=== PATIENT | female | born 1955 | race Caucasian/White ===

== ENCOUNTER → 2016-08-29 | Outpatient (CLI) | payer OTHER ==
[~2016-08-29] MED LIST: CELEXA 20MG20 MG/TA1 PO; FLEXERIL 1010 MG/TAB PO
== END ==
LOC: VAS 17:41
DX: R55 Syncope and collapse (principal)

== ENCOUNTER → 2018-06-20 | Outpatient (CLI) | payer OTHER ==
[2016-06-05 22:35] VITALS: BP 116/82
== END ==
LOC: RAD 11:22
DX: R31.21 Asymptomatic microscopic hematuria (principal); Z98.890 Other specified postprocedural states; Z98.1 Arthrodesis status; Z90.49 Acquired absence of other specified parts of digestive tract

== ENCOUNTER → 2021-09-22 | Outpatient (CLI) | payer OTHER ==
[~2021-09-22] MED LIST changes: +NORCO 325 MG-51 TA1 PO
== END ==
LOC: RAD 15:17
DX: M25.562 Pain in left knee (principal); M25.552 Pain in left hip; M25.462 Effusion, left knee

== ENCOUNTER → 2021-10-04 | Outpatient (CLI) | payer OTHER | LOC: RAD 10:58 | DX: M17.0 Bilateral primary osteoarthritis of knee (principal) ==

== ENCOUNTER → 2021-10-12 | Outpatient (CLI) | payer BC | LOC: RAD 15:00 | DX: S83.282A Other tear of lateral meniscus, current injury, left knee, initial encounter (principal); S80.02XA Contusion of left knee, initial encounter; M17.12 Unilateral primary osteoarthritis, left knee; X58.XXXA Exposure to other specified factors, initial encounter ==

== ENCOUNTER 2021-10-26 12:59 | Outpatient (RCR) | payer BC | END 2021-11-14 | disposition home or self-care (01) | LOC: PT | DX: M25.562 Pain in left knee (principal) ==

== ENCOUNTER → 2021-12-13 | Outpatient (CLI) | payer BC | LOC: VAS 15:56 | DX: R60.0 Localized edema (principal); M79.605 Pain in left leg ==